=== PATIENT | female | born 1960 | race Caucasian/White ===

== ENCOUNTER 2020-09-09 14:51 | Outpatient (REF) | payer MEDICARE, MEDICAID, SELFPAY ==
[2020-09-09 15:54] LABS: Influenza A PCR NEGATIVE (Negative); Influenza B PCR NEGATIVE (Negative); Resp Syncy Virus RNA Qual PCR NEGATIVE (Negative); SARS COV2 PCR INHOUSE NEGATIVE (Negative)
== END 2020-09-09 14:52 | disposition home or self-care (01) ==
LOC: HO.LNP 14:51
PROVIDERS: Visit Provider Internal Medicine
DX: Z20.822 Contact with and (suspected) exposure to COVID-19 (principal)
CPT/HCPCS: 0241U